=== PATIENT | male | born 1970 | race Two or more races ===

== ENCOUNTER 2017-10-20 18:17 | Emergency (ER) | payer OTHER ==
[2017-10-20 18:42] VITALS: BP 130/79; PULSE 95; TEMP 98.1; BMI 30.1
[2017-10-20] MEDS ORDERED: ACETAMINOPHEN 500 MG TABLET (FP) PO STA (19:06)
[2017-10-20] MEDS ORDERED: guaiFENesin/CODEINE 10 ML UNIT-DOSE CUPS PO ONE (19:06)
[2017-10-20] MEDS ORDERED: guaiFENesin/CODEINE 5 ML UNIT-DOSE CUPS PO ONE (19:09)
[2017-10-20] MEDS ORDERED: ACETAMINOPHEN 325 MG TABLET (FP) ONE (19:10)
--- NOTE | 2017-10-20 19:33 | PDOC ---
History of Present Illness - History of Present Illness Initial Comments: 10/20/17 19:33 Patient is a 47 M, with significant PMHx of HTN, seizures, intermittent reactive airway disease, and kidney stones, who presents today for flu-like symptoms for 1 week of pleuritic cough. Patient reports that for the past two consecutive Sundays he was seen at [facility]. His first visit was due to hematuria, he had a work up done and was positive for right kidney stones. He has an appointment for follow up on the 26 of October. His most recent visit to [facility] was for a persistent cough, in which he was given antibiotics, no imaging was done. Currently he is here for pleuritic chest pain with cough and nasal congestion. He denies fever chills, nausea, vomiting, sob, headache, fever Surgical - right knee arthroscopic surgery PCP: Anthony Vigil <Mckayla Sheriff - Last Filed: 10/20/17 21:56> <Vee Cruz - Last Filed: 10/20/17 23:27> - General Chief Complaint: Pain, Acute Stated Complaint: cough, flank pain Time Seen by Provider: 10/20/17 18:54 Past History <Mckayla Sheriff - Last Filed: 10/20/17 21:56> - Past Medical History COPD: No - Suicide/Smoking/Psychosocial Hx Smoking History: Never smoked Have you smoked in the past 12 months: No Information on smoking cessation initiated: No Hx Alcohol Use: No Drug/Substance Use Hx: No Substance Use Type: None <Vee Cruz - Last Filed: 10/20/17 23:27> - Past Medical History Allergies/Adverse Reactions: Allergies Allergy/AdvReac Type Severity Reaction Status Date / Time No Known Allergies Allergy Verified 10/20/17 18:45 Home Medications: Ambulatory Orders Albuterol Sulfate Inhaler - [Ventolin Hfa Inhaler -] 1 - 2 inh PO Q4H PRN #1 inhaler 10/20/17 Prednisone [Deltasone] 20 mg PO DAILY #4 tablet 10/20/17 Review of Systems - Review of Systems Comments:: 10/20/17 19:34 CONSTITUTIONAL: Absent: fever, chills, diaphoresis, generalized weakness, malaise, loss of appetite HEENT: Present: nasal congestion Absent:throat pain, throat swelling, difficulty swallowing, mouth swelling, ear pain, eye pain, visual changes CARDIOVASCULAR: Absent: syncope, palpitations, irregular heart rate, lightheadedness, peripheral edema RESPIRATORY: Present: cough Absent: shortness of breath, dyspnea with exertion, orthopnea, wheezing, stridor , hemoptysis GASTROINTESTINAL: Absent: abdominal pain, abdominal distension, nausea, vomiting, diarrhea, constipation, melena, hematochezia GENITOURINARY: Absent: dysuria, frequency, urgency, hesitancy, current hematuria, flank pain, genital pain MUSCULOSKELETAL: Present: pleuritic chest pain Absent: myalgia, arthralgia, joint swelling SKIN: Absent: rash, itching, pallor HEMATOLOGIC/IMMUNOLOGIC: Absent: easy bleeding, easy bruising, lymphadenopathy, frequent infections ENDOCRINE: Absent: unexplained weight gain, unexplained weight loss, heat intolerance, cold intolerance NEUROLOGIC: Absent: headache, focal weakness or paresthesias, dizziness, unsteady gait, seizure, mental status changes, bladder or bowel incontinence PSYCHIATRIC: Absent: anxiety, depression, suicidal or homicidal ideation, hallucinations. <Mckayla Sheriff - Last Filed: 10/20/17 21:56> *Physical Exam - Vital Signs Last Vital Signs Temp Pulse Resp BP Pulse Ox 98.1 F 95 H 18 130/79 100 10/20/17 18:20 10/20/17 18:20 10/20/17 18:20 10/20/17 18:20 10/20/17 18:20 - Physical Exam Comments: 10/20/17 19:38 GENERAL: Well developed, well nourished. Awake and alert. No acute distress. HEENT: Normocephalic, atraumatic. PERRLA, EOMI. No conjunctival pallor. Sclera are non- icteric. Moist mucous membranes. Oropharynx is clear. NECK: Supple. Full ROM. No JVD. Carotid pulses 2+ and symmetric, without bruits. No thyromegaly. No lymphadenopathy. CARDIOVASCULAR: Regular rate and rhythm. No murmurs, rubs, or gallops. Distal pulses are 2+ and symmetric. PULMONARY: No evidence of respiratory distress. Lungs clear to auscultation bilaterally. No wheezing, rales or rhonchi. ABDOMINAL: Soft. Non-tender. Non-distended. No rebound or guarding. No organomegaly. Normoactive bowel sounds. MUSCULOSKELETAL Normal range of motion at all joints. No bony deformities or tenderness. No CVA tenderness. EXTREMITIES: No cyanosis. No clubbing. No edema. No calf tenderness. SKIN: Warm and dry. Normal capillary refill. No rashes. No jaundice. NEUROLOGICAL: Alert, awake, appropriate. Cranial nerves 2-12 intact. No deficits to light touch and temperature in face, upper extremities and lower extremities. No motor deficits in the in face, upper extremities and lower extremities. Normoreflexic in the upper and lower extremities. Normal speech. Toes are down-going bilaterally. Gait is normal without ataxia. <Mckayla Sheriff - Last Filed: 10/20/17 21:56> - Vital Signs Last Vital Signs Temp Pulse Resp BP Pulse Ox 98.1 F 95 H 18 130/79 100 10/20/17 18:20 10/20/17 18:20 10/20/17 18:20 10/20/17 18:20 10/20/17 18:20 <Vee Cruz - Last Filed: 10/20/17 23:27> ED Treatment Course - LABORATORY CBC & Chemistry Diagram: 10/20/17 19:52 10/20/17 19:52 - RADIOLOGY Radiograph Interpretation: 10/20/17 21:56 Chest x-ray Impression: normal chest Reported by: Charlie Velasquez MD 10/20/17 1950 - Medications Given in the ED: ED Medications Discontinued Medications Generic Name Dose Route Start Last Admin Trade Name Freq PRN Reason Stop Dose Admin Acetaminophen 975 mg 10/20/17 19:06 10/20/17 19:23 Tylenol - PO 10/20/17 19:07 975 mg ONCE STA Administration Guaifenesin/Codeine Phosphate 10 ml 10/20/17 19:06 10/20/17 19:23 Robitussin Ac - PO 10/20/17 19:07 10 ml ONCE ONE Administration <Mckayla Sheriff - Last Filed: 10/20/17 21:56> - LABORATORY CBC & Chemistry Diagram: 10/20/17 19:52 10/20/17 19:52 - RADIOLOGY Radiology Studies Ordered: Category Date Time Status CHEST PA & LAT [RAD] Stat Radiology 10/20/17 19:23 Ordered - Medications Given in the ED: ED Medications Discontinued Medications Generic Name Dose Route Start Last Admin Trade Name Freq PRN Reason Stop Dose Admin Acetaminophen 975 mg 10/20/17 19:06 10/20/17 19:23 Tylenol - PO 10/20/17 19:07 975 mg ONCE STA Administration Guaifenesin/Codeine Phosphate 10 ml 10/20/17 19:06 10/20/17 19:23 Robitussin Ac - PO 10/20/17 19:07 10 ml ONCE ONE Administration <Vee Cruz - Last Filed: 10/20/17 23:27> Medical Decision Making - Medical Decision Making 10/20/17 23:25 47-year-old male has complaint of coughing for the past week. He last Thursday he was seen at [facility] and treated for flulike illness and put on antibiotics. Thursday he went because of flank pain and hematuria and was told he had kidney stones. Patient has persistent coughing and nasal congestion and returns today. No substernal chest pain, no documented fever, some scattered wheezing on lung exam. Chest x-ray is negative for any infiltrates, pleural effusions, pneumothorax or any acute pulmonary disease. Patient was given steroids and respiratory treatments. Prescriptions for bronchodilators and steroids were sent to his [facility] pharmacy. He is discharged to follow-up with his primary care physician <Vee Cruz - Last Filed: 10/20/17 23:27> *DC/Admit/Observation/Transfer <Mckayla Sheriff - Last Filed: 10/20/17 21:56> <Vee Cruz - Last Filed: 10/20/17 23:27> Diagnosis at time of Disposition: Wheezing, Cough in adult patient - Discharge Dispostion Disposition: HOME Condition at time of disposition: Stable - Prescriptions Prescriptions: Albuterol Sulfate Inhaler - [Ventolin Hfa Inhaler -] 1 - 2 inh PO Q4H PRN #1 inhaler PRN Reason: Wheezing Prednisone [Deltasone] 20 mg PO DAILY #4 tablet - Referrals Referrals: Yaritza Cruz MD [Primary Care Provider] - - Patient Instructions Printed Discharge Instructions: DI for Acute Bronchitis Additional Instructions: please picker operator your medications at [facility] pharmacy and take them as directed Follow up with your primary physician Return for worsening symptoms - Post Discharge Activity
[2017-10-20] MEDS ORDERED: predniSONE 20 MG TABLET (UD) ONE (19:54)
[2017-10-20] MEDS ORDERED: ALBUTEROL SO4 2.5/IPRATROPIUM 0.5 INH SOL 3 ML VIAL.NEB. NEB ONE ×2 (19:54→20:21)
[2017-10-20 20:00] LABS: BASO % 0.4 % (0-2.0); EOS % 0.4 % (0-4.5); HEMOGLOBIN 15.4 GM/dL (11.7-16.9); LYMPH % 12.1 % (8-40); MCH 27.7 pg (25.7-33.7); MCHC 32.7 g/dl (32.0-35.9); MEAN CELL VOLUME 84.7 fl (80-96); MEAN PLT VOLUME 8.5 fl (7.5-11.1); MONO % 10.6 % (3.8-10.2); NEUT % 76.5 % (42.8-82.8); PLATELET COUNT 231 K/MM3 (134-434); RBC 5.55 M/mm3 (4.00-5.60); RDW 14.5 % (11.9-15.9); WHITE BLOOD COUNT 10.1 K/mm3 (4.0-10.0)
[2017-10-20] MEDS ORDERED: DEXAMETHASONE SOD PHOSPHATE 20 MG/5 ML VIAL IVPB ONE (20:20)
[2017-10-20] MEDS ORDERED: DEXAMETHASONE SOD PHOSPHATE 10 MG/1 ML VIAL ONE (20:28)
== END 2017-10-20 23:31 | disposition home or self-care (01) ==
LOC: JER 18:17
PROC: 3E0F7GC Introduction of Other Therapeutic Substance into Respiratory Tract, Via Natural or Artificial Opening (ICD-10-PCS; principal; 2017-10-20)
PROC: 3E0333Z Introduction of Anti-inflammatory into Peripheral Vein, Percutaneous Approach (ICD-10-PCS; 2017-10-20)
DX: J20.9 Acute bronchitis, unspecified (principal)
CPT/HCPCS: 36415; 71046-TC-FY; 85025; 94640; 96374; 99283-25

== ENCOUNTER 2020-10-01 15:03 | Emergency (ER) | payer OTHER ==
[2020-10-01 15:18] VITALS: BP 136/97; PULSE 112; TEMP 99.1; BMI 30.1
== END 2020-10-01 16:07 | disposition home or self-care (01) ==
LOC: JER 15:03
DX: Z11.52 Encounter for screening for COVID-19 (principal)
CPT/HCPCS: 99283-25; C9803; U0003

== ENCOUNTER 2020-12-12 13:06 | Emergency (ER) | payer OTHER ==
[2020-12-12 13:16] VITALS: BP 143/73; PULSE 94; TEMP 98.5; BMI 28.8
[2020-12-12] MEDS ORDERED: MAG HYDROX/AL HYDROX/SIMETH 30 ML UNIT-DOSE CUP PO ONE (14:14)
[2020-12-12] MEDS ORDERED: MAG HYDROX/AL HYDROX/SIMETH 30 ML UNIT-DOSE CUP ONE (14:41)
[2020-12-12 15:17] LABS: BASO % 0.8 % (0-2.0); EOS % 0.8 % (0-4.5); HEMATOCRIT 44.2 % (35.4-49); HEMOGLOBIN 14.8 GM/dL (11.7-16.9); LYMPH % 18.9 % (8-40); MCH 28.4 pg (25.7-33.7); MCHC 33.4 g/dl (32.0-35.9); MEAN CELL VOLUME 84.9 fl (80-96); MEAN PLT VOLUME 8.7 fl (7.5-11.1); MONO % 5.3 % (3.8-10.2); NEUT % 74.2 % (42.8-82.8); PLATELET COUNT 287 K/MM3 (134-434); RBC 5.21 M/mm3 (4.00-5.60); RDW 15.5 % (11.9-15.9); WHITE BLOOD COUNT 12.3 K/mm3 (4.0-10.0)
[2020-12-12 16:07] LABS: CHLORIDE 108 mmol/L (98-107); SODIUM 141 mmol/L (136-145)
[2020-12-12 16:09] LABS: ALBUMIN 3.6 g/dl (3.4-5.0); ANION GAP 8 MMOL/L (8-16); BLOOD UREA NITROGEN 17.6 mg/dL (7-18); CALCIUM 9.3 mg/dL (8.5-10.1); CO2 25 mmol/L (21-32); GLUCOSE,RANDOM 102 mg/dL (74-106)
[2020-12-12 16:12] LABS: SGOT/AST 26 U/L (15-37); SGPT/ALT 28 U/L (13-61)
[2020-12-12 16:13] LABS: CREATININE 1.2 mg/dL (0.55-1.3)
[2020-12-12 16:14] LABS: BILIRUBIN,TOTAL 0.4 mg/dL (0.2-1); TOT PROT 6.6 g/dl (6.4-8.2)
[2020-12-12 16:15] LABS: ALK PHOS 101 U/L (45-117)
== END 2020-12-12 16:43 | disposition home or self-care (01) ==
LOC: JER 13:06
DX: K21.9 Gastro-esophageal reflux disease without esophagitis (principal)
CPT/HCPCS: 36415; 71046-TC-FY; 80053; 84484; 85025; 93005; 93010; 99285-25

== ENCOUNTER 2022-12-04 19:25 | Inpatient (IN) | payer OTHER ==
[2022-12-04] MEDS ORDERED: methylPREDNISolone NA SUCC 125 MG/2 ML VIAL IVPUSH ONE (20:18)
[2022-12-04] MEDS ORDERED: LACTATED RINGERS SOLUTION 1000 ML INFUS.BAG IV ONE (20:18)
[2022-12-04] MEDS ORDERED: ACETAMINOPHEN 1000 MG/100 ML BAG IVPB ONE (20:18)
[2022-12-04] MEDS ORDERED: ALBUTEROL SO4 2.5/IPRATROPIUM 0.5 INH SOL 3 ML VIAL.NEB. NEB ONE (20:42)
[2022-12-04] MEDS ORDERED: ACETAMINOPHEN INJECTION 100 ML IVPB ONE (20:42)
[2022-12-04] MEDS ORDERED: methylPREDNISolone NA SUCC 125 MG/2 ML VIAL ONE (20:43)
[2022-12-04] MEDS: ALBUTEROL SO4 2.5/IPRATROPIUM 0.5 INH SOL 3 ML VIAL.NEB. NEB SCH ×3 (20:55→21:32)
[2022-12-04 21:58] LABS: BASO % 0.3 % (0-2.0); EPI CELLS 5 /uL (0-25.1); HEMATOCRIT 47.6 % (35.4-49); HEMOGLOBIN 15.7 GM/dL (11.7-16.9); HYALINE CASTS 1 /uL (0-3.1); LYMPH % 12.7 % (8-40); MCH 26.7 pg (25.7-33.7); MEAN CELL VOLUME 80.9 fl (80-96); MEAN PLT VOLUME 9.3 fl (7.5-11.1); MONO % 10.7 % (3.8-10.2); NEUT % 76.3 % (42.8-82.8); PH,URINE 5.5 (5.0-8.0); PLATELET COUNT 275 10^3/uL (134-434); RBC 5.88 M/mm3 (4.00-5.60); RDW 15.4 % (11.9-15.9); URINE APPEARANCE TURBID; URINE BACTERIA 21 /uL (0-1359); URINE BILIRUBIN NEGATIVE (NEGATIVE); URINE COLOR DK YELLOW; URINE GLUCOSE (UA) NEGATIVE (NEGATIVE); URINE KETONE TRACE (NEGATIVE); URINE LEUK ESTERASE NEGATIVE (NEGATIVE); URINE NITRITE NEGATIVE (NEGATIVE); URINE PROTEIN 2+ (NEGATIVE); URINE RBC 29 /uL (0-23.9); URINE WBC 30 /uL (0-25.8); WHITE BLOOD COUNT 11.2 K/mm3 (4.0-10.0)
[2022-12-04 22:20] LABS: BLOOD UREA NITROGEN 18.1 mg/dL (7-18); CALCIUM 8.8 mg/dL (8.5-10.1)
[2022-12-04 22:21] LABS: ALBUMIN 3.5 g/dl (3.4-5.0)
[2022-12-04 22:25] LABS: CREATININE 1.8 mg/dL (0.55-1.3)
[2022-12-04] MEDS ORDERED: ALBUTEROL SO4 0.083% IH SOL 2.5 MG/3 ML VIAL.NEB. NEB ONE ×2 (22:41→22:57)
[2022-12-05 00:43] LABS: CALCIUM 8.5 mg/dL (8.5-10.1)
[2022-12-05 00:44] LABS: ALBUMIN 3.5 g/dl (3.4-5.0); BLOOD UREA NITROGEN 16.9 mg/dL (7-18)
[2022-12-05 00:46] LABS: CREATININE 1.6 mg/dL (0.55-1.3)
[2022-12-05 00:49] LABS: BILIRUBIN,TOTAL 0.9 mg/dL (0.2-1); TOT PROT 6.7 g/dl (6.4-8.2)
[2022-12-05] MEDS ORDERED: LACTATED RINGERS SOLUTION 1,000 ML/1,000 ML INFUS.BAG IV SCH ×2 (01:00→11:47)
[2022-12-05] MEDS ORDERED: methylPREDNISolone NA SUCC 40 MG/1 ML VIAL IVPUSH SCH ×2 (02:00→10:00)
[2022-12-05] MEDS: methylPREDNISolone NA SUCC 40 MG/1 ML VIAL IVPUSH SCH ×3 (02:51→17:35)
[2022-12-05 03:03] LABS: CHOLESTEROL 81 mg/dL (50-200)
[2022-12-05 03:04] LABS: LDL CHOLESTEROL (ONLY SJRH) 50 mg/dL (5-100)
[2022-12-05 03:06] LABS: HDL CHOLESTEROL 26 mg/dL (40-60)
[2022-12-05] MEDS ORDERED: HEPARIN NA (PORCINE) 5,000 UNITS/ML 1ML VIAL SQ SCH (06:00)
[2022-12-05 06:29] LABS: HEMATOCRIT 47.6 % (35.4-49); MCH 27.2 pg (25.7-33.7); MCHC 33.5 g/dl (32.0-35.9); MEAN CELL VOLUME 81.2 fl (80-96); MEAN PLT VOLUME 8.3 fl (7.5-11.1); PLATELET COUNT 193 10^3/uL (134-434); RBC 5.86 M/mm3 (4.00-5.60); RDW 15.2 % (11.9-15.9); WHITE BLOOD COUNT 7.4 K/mm3 (4.0-10.0)
[2022-12-05 06:57] LABS: ALBUMIN 3.4 g/dl (3.4-5.0); BLOOD UREA NITROGEN 15.3 mg/dL (7-18); CALCIUM 8.4 mg/dL (8.5-10.1)
[2022-12-05 07:01] LABS: BILIRUBIN,TOTAL 0.7 mg/dL (0.2-1); CREATININE 1.4 mg/dL (0.55-1.3)
[2022-12-05 07:02] LABS: TOT PROT 6.8 g/dl (6.4-8.2)
[2022-12-05] MEDS ORDERED: ALBUTEROL SO4 2.5/IPRATROPIUM 0.5 INH SOL 3 ML VIAL.NEB. NEB SCH (08:00)
[2022-12-05] MEDS ORDERED: TAMSULOSIN HCL 0.4 MG CAP PO SCH (08:30)
[2022-12-05] MEDS ORDERED: HYDROCHLOROTHIAZIDE 25 MG TABLET (FP) PO SCH (10:00)
[2022-12-05] MEDS ORDERED: PATIENT'S OWN MEDICATION (NON-FORMULARY) (Lisinopril [Lisinopril] 40 MG Tablet) PO SCH (10:00)
[2022-12-05] MEDS ORDERED: methylPREDNISolone NA SUCC 40 MG/1 ML VIAL ONE (10:13)
[2022-12-05] MEDS ORDERED: TAMSULOSIN HCL 0.4 MG CAP ONE (10:13)
[2022-12-05] MEDS ORDERED: ALBUTEROL SO4 2.5/IPRATROPIUM 0.5 INH SOL 3 ML VIAL.NEB. NEB ONE (10:13)
[2022-12-05] MEDS: ALBUTEROL SO4 2.5/IPRATROPIUM 0.5 INH SOL 3 ML VIAL.NEB. NEB SCH ×5 (10:14→20:05)
[2022-12-05] MEDS ORDERED: ACETAMINOPHEN 325 MG TABLET (FP) PO PRN (13:43)
[2022-12-05] MEDS ORDERED: SODIUM CHLORIDE 1,000 ML IV SCH (13:45)
[2022-12-05] MEDS ORDERED: LISINOPRIL 20 MG TABLET PO ONE (14:26)
[2022-12-05] MEDS ORDERED: ALBUTEROL SO4 0.042% IH SOL 1.25 MG/3 ML VIAL.NEB NEB PRN (14:27)
[2022-12-05] MEDS ORDERED: AZITHROMYCIN IVPB 500 MG in DEXTROSE 5%-WATER - 250 ML IVPB SCH (14:30)
[2022-12-05 14:33] LABS: EPI CELLS 9 /uL (0-25.1); HYALINE CASTS 5 /uL (0-3.1); PH,URINE 5.5 (5.0-8.0); URINE APPEARANCE TURBID; URINE BACTERIA 3 /uL (0-1359); URINE BILIRUBIN NEGATIVE (NEGATIVE); URINE COLOR YELLOW; URINE GLUCOSE (UA) TRACE (NEGATIVE); URINE KETONE TRACE (NEGATIVE); URINE LEUK ESTERASE NEGATIVE (NEGATIVE); URINE NITRITE NEGATIVE (NEGATIVE); URINE PROTEIN 2+ (NEGATIVE); URINE RBC 15 /uL (0-23.9); URINE WBC 18 /uL (0-25.8)
[2022-12-05] MEDS ORDERED: LISINOPRIL 20 MG TABLET ONE (14:51)
[2022-12-05] MEDS ORDERED: AZITHROMYCIN IVPB 500 MG/250 ML BAG IVPB SCH (15:31)
[2022-12-05] MEDS: CEFTRIAXONE 1 GM in DEXTROSE 5%-WATER - 50 ML IVPB SCH (15:32)
[2022-12-05] MEDS: AZITHROMYCIN IVPB 500 MG/250 ML BAG IVPB SCH (16:26)
[2022-12-05] MEDS: amLODIPine BESYLATE 2.5 MG TABLET (FP) PO SCH (17:45)
[2022-12-05] MEDS ORDERED: ATORVASTATIN CA 20 MG TABLET (FP) ONE (21:14)
[2022-12-05] MEDS: HEPARIN NA (PORCINE) 5,000 UNITS/ML 1ML VIAL SQ SCH (21:15)
[2022-12-05] MEDS: ATORVASTATIN CA 40 MG TABLET (FP) PO SCH (21:16)
[2022-12-05] MEDS ORDERED: ATORVASTATIN CA 40 MG TABLET (FP) PO SCH (22:00)
[2022-12-06] MEDS: methylPREDNISolone NA SUCC 40 MG/1 ML VIAL IVPUSH SCH ×4 (02:00→21:10)
[2022-12-06] MEDS: ALBUTEROL SO4 2.5/IPRATROPIUM 0.5 INH SOL 3 ML VIAL.NEB. NEB SCH ×4 (08:00→20:16)
[2022-12-06 08:07] LABS: BASO % 0.1 % (0-2.0); HEMATOCRIT 44.4 % (35.4-49); HEMOGLOBIN 15.2 GM/dL (11.7-16.9); LYMPH % 9.1 % (8-40); MCH 27.6 pg (25.7-33.7); MCHC 34.3 g/dl (32.0-35.9); MEAN CELL VOLUME 80.4 fl (80-96); MEAN PLT VOLUME 9.3 fl (7.5-11.1); MONO % 6.8 % (3.8-10.2); PLATELET COUNT 233 10^3/uL (134-434); RBC 5.53 M/mm3 (4.00-5.60); RDW 14.9 % (11.9-15.9); WHITE BLOOD COUNT 11.1 K/mm3 (4.0-10.0)
[2022-12-06 08:14] LABS: CALCIUM 8.9 mg/dL (8.5-10.1)
[2022-12-06 08:15] LABS: ALBUMIN 3.1 g/dl (3.4-5.0); BLOOD UREA NITROGEN 17.4 mg/dL (7-18); MAGNESIUM 1.9 mg/dL (1.8-2.4)
[2022-12-06 08:19] LABS: CREATININE 1.1 mg/dL (0.55-1.3); TOT PROT 6.1 g/dl (6.4-8.2)
[2022-12-06 08:20] LABS: BILIRUBIN,TOTAL 0.4 mg/dL (0.2-1)
[2022-12-06] MEDS: HEPARIN NA (PORCINE) 5,000 UNITS/ML 1ML VIAL SQ SCH ×2 (09:10→21:10)
[2022-12-06] MEDS: CEFTRIAXONE 1 GM in DEXTROSE 5%-WATER - 50 ML IVPB SCH (09:11)
[2022-12-06] MEDS: AZITHROMYCIN IVPB 500 MG/250 ML BAG IVPB SCH (09:11)
[2022-12-06] MEDS: amLODIPine BESYLATE 2.5 MG TABLET (FP) PO SCH (09:11)
[2022-12-06] MEDS: TAMSULOSIN HCL 0.4 MG CAP PO SCH (09:11)
[2022-12-06] MEDS: LISINOPRIL 20 MG TABLET PO SCH (09:16)
[2022-12-06] MEDS: BUDESONIDE/FORMETEROL FUMARATE 160/4.5 mcg INHALER IH SCH ×2 (16:12→21:14)
[2022-12-06] MEDS: ATORVASTATIN CA 40 MG TABLET (FP) PO SCH (21:10)
[2022-12-07] MEDS: methylPREDNISolone NA SUCC 40 MG/1 ML VIAL IVPUSH SCH ×4 (03:12→21:30)
[2022-12-07] MEDS: ALBUTEROL SO4 2.5/IPRATROPIUM 0.5 INH SOL 3 ML VIAL.NEB. NEB SCH ×4 (08:09→20:19)
[2022-12-07] MEDS: HEPARIN NA (PORCINE) 5,000 UNITS/ML 1ML VIAL SQ SCH ×2 (09:14→21:30)
[2022-12-07] MEDS: LISINOPRIL 20 MG TABLET PO SCH (09:14)
[2022-12-07] MEDS: TAMSULOSIN HCL 0.4 MG CAP PO SCH (09:14)
[2022-12-07] MEDS: amLODIPine BESYLATE 2.5 MG TABLET (FP) PO SCH (09:14)
[2022-12-07] MEDS: CEFTRIAXONE 1 GM in DEXTROSE 5%-WATER - 50 ML IVPB SCH (09:15)
[2022-12-07] MEDS: AZITHROMYCIN IVPB 500 MG/250 ML BAG IVPB SCH (09:15)
[2022-12-07] MEDS: BUDESONIDE/FORMETEROL FUMARATE 160/4.5 mcg INHALER IH SCH ×2 (09:15→21:32)
[2022-12-07 09:17] LABS: BASO % 0.1 % (0-2.0); HEMATOCRIT 44.8 % (35.4-49); HEMOGLOBIN 14.9 GM/dL (11.7-16.9); LYMPH % 7.8 % (8-40); MCHC 33.4 g/dl (32.0-35.9); MEAN CELL VOLUME 80.8 fl (80-96); MEAN PLT VOLUME 9.5 fl (7.5-11.1); MONO % 5.2 % (3.8-10.2); NEUT % 86.9 % (42.8-82.8); PLATELET COUNT 244 10^3/uL (134-434); RBC 5.55 M/mm3 (4.00-5.60); RDW 14.9 % (11.9-15.9); WHITE BLOOD COUNT 13.2 K/mm3 (4.0-10.0)
[2022-12-07 09:49] LABS: BLOOD UREA NITROGEN 19.7 mg/dL (7-18); CREATININE 1.1 mg/dL (0.55-1.3)
[2022-12-07 09:50] LABS: BILIRUBIN,TOTAL 0.3 mg/dL (0.2-1)
[2022-12-07 09:54] LABS: CALCIUM 8.3 mg/dL (8.5-10.1)
[2022-12-07 09:57] LABS: MAGNESIUM 1.9 mg/dL (1.8-2.4)
[2022-12-07] MEDS: AZITHROMYCIN 250 MG TABLET PO SCH (13:49)
[2022-12-07] MEDS: ATORVASTATIN CA 40 MG TABLET (FP) PO SCH (21:31)
[2022-12-07] MEDS: MELATONIN 5 MG TABLETS PO SCH (21:32)
[2022-12-08] MEDS: methylPREDNISolone NA SUCC 40 MG/1 ML VIAL IVPUSH SCH ×3 (03:49→18:13)
[2022-12-08 08:36] LABS: HEMATOCRIT 43.6 % (35.4-49); HEMOGLOBIN 14.9 GM/dL (11.7-16.9); MCH 27.2 pg (25.7-33.7); MCHC 34.1 g/dl (32.0-35.9); MEAN CELL VOLUME 79.5 fl (80-96); MEAN PLT VOLUME 8.9 fl (7.5-11.1); PLATELET COUNT 255 10^3/uL (134-434); RBC 5.48 M/mm3 (4.00-5.60); RDW 15.4 % (11.9-15.9)
[2022-12-08] MEDS: ALBUTEROL SO4 2.5/IPRATROPIUM 0.5 INH SOL 3 ML VIAL.NEB. NEB SCH ×4 (08:49→20:40)
[2022-12-08 09:26] LABS: CALCIUM 9.1 mg/dL (8.5-10.1)
[2022-12-08 09:27] LABS: ALBUMIN 3.1 g/dl (3.4-5.0); BLOOD UREA NITROGEN 21.2 mg/dL (7-18); MAGNESIUM 1.9 mg/dL (1.8-2.4)
[2022-12-08 09:30] LABS: CREATININE 1.1 mg/dL (0.55-1.3)
[2022-12-08 09:31] LABS: BILIRUBIN,TOTAL 0.4 mg/dL (0.2-1)
[2022-12-08 09:32] LABS: TOT PROT 6.2 g/dl (6.4-8.2)
[2022-12-08] MEDS: TAMSULOSIN HCL 0.4 MG CAP PO SCH (09:58)
[2022-12-08] MEDS: amLODIPine BESYLATE 2.5 MG TABLET (FP) PO SCH (09:59)
[2022-12-08] MEDS: AZITHROMYCIN 250 MG TABLET PO SCH (09:59)
[2022-12-08] MEDS: PANTOPRAZOLE 40 MG TABLET PO SCH (09:59)
[2022-12-08] MEDS: LISINOPRIL 20 MG TABLET PO SCH (09:59)
[2022-12-08] MEDS: BUDESONIDE/FORMETEROL FUMARATE 160/4.5 mcg INHALER IH SCH ×2 (10:07→21:17)
[2022-12-08] MEDS: HEPARIN NA (PORCINE) 5,000 UNITS/ML 1ML VIAL SQ SCH ×2 (10:07→21:21)
[2022-12-08 10:58] LABS: ANISOCYTOSIS 0; HELMET CELLS 0; HOWELL-JOLLY BODIES 0; MACROCYTOSIS 0; OVALOCYTE 0; ROULEAU 0; SICKELED CELLS 0; TARGET CELLS 0; TEAR DROP CELLS 0; TOXIC GRANULATION 0
[2022-12-08] MEDS: CEFTRIAXONE 1 GM in DEXTROSE 5%-WATER - 50 ML IVPB SCH (13:58)
[2022-12-08 19:32] LABS: EPI CELLS 3 /uL (0-25.1); HYALINE CASTS 0 /uL (0-3.1); PH,URINE 6.5 (5.0-8.0); URINE APPEARANCE CLEAR; URINE BACTERIA 3 /uL (0-1359); URINE BILIRUBIN NEGATIVE (NEGATIVE); URINE COLOR YELLOW; URINE GLUCOSE (UA) 2+ (NEGATIVE); URINE KETONE TRACE (NEGATIVE); URINE LEUK ESTERASE NEGATIVE (NEGATIVE); URINE NITRITE NEGATIVE (NEGATIVE); URINE PROTEIN TRACE (NEGATIVE); URINE RBC 21 /uL (0-23.9); URINE UROBILINOGEN 0.2 mg/dL (0.2-1.0); URINE WBC 1 /uL (0-25.8)
[2022-12-08 21:06] LABS: ANTIGLOMERULAR BASEMENT MEN.AB <0.2 units (0.0-0.9)
[2022-12-08] MEDS: MELATONIN 5 MG TABLETS PO SCH (21:18)
[2022-12-08] MEDS: ATORVASTATIN CA 40 MG TABLET (FP) PO SCH (21:18)
[2022-12-08 21:59] VITALS: BMI 27.6
[2022-12-09] MEDS: methylPREDNISolone NA SUCC 40 MG/1 ML VIAL IVPUSH SCH ×3 (01:04→18:25)
[2022-12-09] MEDS: ALBUTEROL SO4 2.5/IPRATROPIUM 0.5 INH SOL 3 ML VIAL.NEB. NEB SCH ×4 (08:00→20:05)
[2022-12-09 08:48] LABS: HEMATOCRIT 45.4 % (35.4-49); HEMOGLOBIN 15.3 GM/dL (11.7-16.9); MCHC 33.8 g/dl (32.0-35.9); MEAN PLT VOLUME 9.3 fl (7.5-11.1); PLATELET COUNT 275 10^3/uL (134-434); RBC 5.68 M/mm3 (4.00-5.60); RDW 15.1 % (11.9-15.9); WHITE BLOOD COUNT 18.8 K/mm3 (4.0-10.0)
[2022-12-09 09:01] LABS: ALBUMIN 3.2 g/dl (3.4-5.0); CALCIUM 8.6 mg/dL (8.5-10.1)
[2022-12-09 09:05] LABS: BILIRUBIN,TOTAL 0.6 mg/dL (0.2-1); BLOOD UREA NITROGEN 26.7 mg/dL (7-18)
[2022-12-09 09:06] LABS: TOT PROT 6.2 g/dl (6.4-8.2)
[2022-12-09 09:08] LABS: CREATININE 1.1 mg/dL (0.55-1.3)
[2022-12-09] MEDS: AZITHROMYCIN 250 MG TABLET PO SCH (09:20)
[2022-12-09] MEDS: PANTOPRAZOLE 40 MG TABLET PO SCH (09:20)
[2022-12-09] MEDS: TAMSULOSIN HCL 0.4 MG CAP PO SCH (09:20)
[2022-12-09] MEDS: amLODIPine BESYLATE 2.5 MG TABLET (FP) PO SCH (09:20)
[2022-12-09] MEDS: LISINOPRIL 20 MG TABLET PO SCH (09:21)
[2022-12-09] MEDS: BUDESONIDE/FORMETEROL FUMARATE 160/4.5 mcg INHALER IH SCH ×2 (09:34→21:06)
[2022-12-09 10:19] LABS: ANISOCYTOSIS 0; HELMET CELLS 0; HOWELL-JOLLY BODIES 0; MACROCYTOSIS 0; OVALOCYTE 0; ROULEAU 0; SICKELED CELLS 0; TARGET CELLS 0; TEAR DROP CELLS 0; TOXIC GRANULATION 0
[2022-12-09] MEDS: CEFTRIAXONE 1 GM in DEXTROSE 5%-WATER - 50 ML IVPB SCH (12:57)
[2022-12-09] MEDS: HEPARIN NA (PORCINE) 5,000 UNITS/ML 1ML VIAL SQ SCH ×2 (12:58→21:06)
[2022-12-09] MEDS ORDERED: PIPERACILLIN/TAZOB 3.375 GM 3.375 GM in DEXTROSE 5%-WATER - 50 ML IVPB SCH (15:30)
[2022-12-09] MEDS: PIPERACILLIN/TAZOB 3.375 GM 3.375 GM in DEXTROSE 5%-WATER - 50 ML IVPB SCH (15:50)
[2022-12-09 21:06] LABS: ATYPICAL pANCA <1:20 titer (Neg:<1:20); C-ANCA <1:20 titer (Neg:<1:20)
[2022-12-09] MEDS: ATORVASTATIN CA 40 MG TABLET (FP) PO SCH (21:06)
[2022-12-09] MEDS: MELATONIN 5 MG TABLETS PO SCH (21:09)
[2022-12-10] MEDS: PIPERACILLIN/TAZOB 3.375 GM 3.375 GM in DEXTROSE 5%-WATER - 50 ML IVPB SCH ×2 (01:48→09:34)
[2022-12-10] MEDS: methylPREDNISolone NA SUCC 40 MG/1 ML VIAL IVPUSH SCH ×2 (01:48→09:33)
[2022-12-10 08:13] LABS: HEMATOCRIT 47.3 % (35.4-49); HEMOGLOBIN 15.9 GM/dL (11.7-16.9); MCHC 33.6 g/dl (32.0-35.9); MEAN CELL VOLUME 80.4 fl (80-96); PLATELET COUNT 317 10^3/uL (134-434); RBC 5.89 M/mm3 (4.00-5.60); WHITE BLOOD COUNT 23.3 K/mm3 (4.0-10.0)
[2022-12-10 08:29] LABS: ALBUMIN 3.2 g/dl (3.4-5.0); BLOOD UREA NITROGEN 31.8 mg/dL (7-18); CALCIUM 8.7 mg/dL (8.5-10.1); MAGNESIUM 2.3 mg/dL (1.8-2.4)
[2022-12-10 08:33] LABS: CREATININE 1.2 mg/dL (0.55-1.3); PHOSPHOROUS 3.6 mg/dL (2.5-4.9)
[2022-12-10 08:34] LABS: BILIRUBIN,TOTAL 0.7 mg/dL (0.2-1); TOT PROT 6.4 g/dl (6.4-8.2)
[2022-12-10] MEDS: ALBUTEROL SO4 2.5/IPRATROPIUM 0.5 INH SOL 3 ML VIAL.NEB. NEB SCH ×3 (08:45→15:45)
[2022-12-10 09:21] LABS: ANISOCYTOSIS 0; HELMET CELLS 0; HOWELL-JOLLY BODIES 0; MACROCYTOSIS 0; OVALOCYTE 0; ROULEAU 0; SICKELED CELLS 0; TARGET CELLS 0; TEAR DROP CELLS 0; TOXIC GRANULATION 0
[2022-12-10] MEDS: LISINOPRIL 20 MG TABLET PO SCH (09:33)
[2022-12-10] MEDS: PANTOPRAZOLE 40 MG TABLET PO SCH (09:33)
[2022-12-10] MEDS: HEPARIN NA (PORCINE) 5,000 UNITS/ML 1ML VIAL SQ SCH (09:33)
[2022-12-10] MEDS: amLODIPine BESYLATE 2.5 MG TABLET (FP) PO SCH (09:33)
[2022-12-10] MEDS: TAMSULOSIN HCL 0.4 MG CAP PO SCH (09:33)
[2022-12-10] MEDS: BUDESONIDE/FORMETEROL FUMARATE 160/4.5 mcg INHALER IH SCH (09:36)
[2022-12-10 10:18] VITALS: BP 135/78; PULSE 82; RESP 16; TEMP 98.2
== END 2022-12-10 15:30 | disposition home or self-care (01) | DRG 871 ==
LOC: JER 19:25 → JERBED 23:02 → UNDOADMOB 23:02 → INTOOBSV 23:02 → JERBED 12-05 14:39 → J4W 12-05 15:08 → JERBED 12-05 15:08 → OBSVTOIN 12-08 11:18
PROVIDERS: ADMIT Internal Medicine; ATTEND Internal Medicine
DX: A41.9 Sepsis, unspecified organism (principal); J18.9 Pneumonia, unspecified organism; N17.9 Acute kidney failure, unspecified; J45.31 Mild persistent asthma with (acute) exacerbation; J21.9 Acute bronchiolitis, unspecified; G40.909 Epilepsy, unspecified, not intractable, without status epilepticus; E87.5 Hyperkalemia; N20.0 Calculus of kidney; I16.0 Hypertensive urgency; R94.31 Abnormal electrocardiogram [ECG] [EKG]; R73.03 Prediabetes
CPT/HCPCS: 0241U-QW; 36415; 71046-TC-FY; 71250-TC; 74176-TC; 78452-TC; 80053; 80061; 81003; 82436; 82550; 82553; 83036; 83516; 83520; 83735; 83880; 83930; 83935; 84100; 84133; 84300; 84484; 85025; 85027; 86038; 86256; 87040; 87086; 87651; 87899; 93005; 93010; 93017; 93306-TC; 94640; 99285-25; A9502; G0378; J1644